=== PATIENT | female | born 1985 | race Caucasian/White ===

== ENCOUNTER 2020-04-20 11:13 | Emergency (ER) | payer MEDICAID, OTHER ==
[~2020-04-20] VITALS: Ht 160 cm; Wt 84.8 kg
[2020-04-20 11:21] VITALS: BP 120/87
== END 2020-04-20 14:00 | disposition left against medical advice (07) ==
LOC: ER 11:13
DX: Z04.89 Encounter for examination and observation for other specified reasons (principal); Z53.21 Procedure and treatment not carried out due to patient leaving prior to being seen by health care provider

== ENCOUNTER 2021-05-08 15:59 | Emergency (ER) | payer MEDICAID ==
[~2021-05-08] VITALS: Ht 160 cm; Wt 70.3 kg
[2021-05-08] MEDS ORDERED: IBUPROFEN 800 MG TAB PO ONE ×2 (18:12→18:15)
[2021-05-08 19:25] VITALS: BP 109/62
[2021-05-08] MEDS ORDERED: ONDANSETRON ODT 4 MG TAB PO ONE (20:15)
[2021-05-08] MEDS ORDERED: HYDROcodone-ACET 10/325MG TAB PO ONE (20:15)
== END 2021-05-08 21:14 | disposition home or self-care (01) ==
LOC: ER 16:00
DX: S82.61XA Displaced fracture of lateral malleolus of right fibula, initial encounter for closed fracture (principal); Z88.0 Allergy status to penicillin; Z88.1 Allergy status to other antibiotic agents; Z88.8 Allergy status to other drugs, medicaments and biological substances; W01.0XXA Fall on same level from slipping, tripping and stumbling without subsequent striking against object, initial encounter; Y93.89 Activity, other specified; Y92.89 Other specified places as the place of occurrence of the external cause; Y99.8 Other external cause status
CPT/HCPCS: 29515; 73610; 99284; Q0162